=== PATIENT | female | born 1975 | race American Indian/Alaskan Native ===

== ENCOUNTER 2020-11-01 14:34 | Emergency (ER) | payer OTHER ==
[2020-11-01] MEDS ORDERED: FAMOTIDINE 20 MG/2 ML INJ IV ONE ×2 (14:39→14:48)
[2020-11-01] MEDS ORDERED: diphenhydrAMINE 50 MG/ML VIAL IV ONE (14:39)
[2020-11-01] MEDS ORDERED: methylPREDNISolone Sod Succinate 125 MG/2 ML INJ IV ONE (14:39)
--- NOTE | 2020-11-01 14:41 | Event Note ---
ED Screening Note ED Screening Note: Patient states that she believes she is having an allergic reaction She states that she began feeling a sensation of her throat closing yesterday but reports that it got worse today She states that she does not have her EpiPen Patient has multiple allergies She denies being exposed to any of her known allergies that she knows of Oxygen is 100% on room air Patient is tachycardic no Respiratory distress, no accessory muscle use, no stridor, no lip edema, no tongue edema, normal oropharynx, no uvular edema, no muffled voice, no trismus, no tongue elevation, no rash, no urticaria, no signs of angioedema This initial assessment/diagnostic orders/clinical plan/treatment(s) is/are subject to change based on patients health status, clinical progression and re- assessment by fellow clinical providers in the ED. Further treatment and workup at subsequent clinical providers discretion. Patient/guardian urged not to elope from the ED as their condition may be serious if not clinically assessed and managed. Initial orders include: Patient given IV medications
[2020-11-01] MEDS ORDERED: LORazepam 2 MG/ML VIAL IV ONE (14:59)
[2020-11-01] MEDS ORDERED: SODIUM CHLORIDE 0.9% 1000 ML 1,000 ML IV ONE (14:59)
--- NOTE | 2020-11-01 15:04 | Emergency Department Report ---
ED Allergic Reaction HPI - General Chief complaint: Allergic Reaction Stated complaint: SOB Time Seen by Provider: 11/01/20 14:39 Source: patient Mode of arrival: Ambulatory Limitations: No Limitations - History of Present Illness Initial Comments: Patient is 45-year-old female with history of allergic reaction. Patient presented to the ER complaining of feeling that her throat is closing up on her. Patient stated that this is similar to her previous allergic reaction. Patient also stated that she has been having itching but no hives. Patient stated that she did not took any medicine prior to coming to the ER. She does not know what is causing her allergy. She stated that she was referred to follow-up with her almond roaster. Patient denied any fever or chills. No difficulty swallowing. No difficulty breathing. Oxygen saturation is 100% on room air. Patient is tachycardic at 140. Oropharyngeal exam showed no tongue swelling uvula is midline. Patient immediately received Benadryl, Solu-Medrol, Pepcid. Patient is very anxious and patient received Ativan 1 mg IV. MD Complaint: allergic reaction -: Last night Exposure: unknown Symptoms: itching Severity: moderate Treatment Prior to Arrival: none Previous Allergy History: prior ED visit(s) - Related Data Previous Rx's Medication Instructions Recorded Last Taken Type Amlodipine Besylate [Norvasc] 5 mg PO DAILY #30 tablet 11/02/20 Unknown Rx Quetiapine Fumarate [SEROquel] 50 mg PO QDAY 30 Days #30 tab 11/02/20 Unknown Rx atenoloL [Tenormin] 25 mg PO BID #60 tab 11/02/20 Unknown Rx lisinopriL [Lisinopril] 20 mg PO DAILY #30 tablet 11/02/20 Unknown Rx Allergies Allergy/AdvReac Type Severity Reaction Status Date / Time avocado Allergy Anaphylaxis Verified 11/01/20 14:42 banana Allergy Anaphylaxis Verified 11/01/20 14:42 Latex, Natural Rubber Allergy Anaphylaxis Verified 11/01/20 14:42 METROCYCLINE Allergy Anaphylaxis Uncoded 11/01/20 14:42 ED Review of Systems ROS: Stated complaint: SOB Other details as noted in HPI Comment: All other systems reviewed and negative Constitutional: denies: chills, fever Respiratory: denies: cough, shortness of breath, SOB with exertion Cardiovascular: denies: chest pain, palpitations Gastrointestinal: denies: abdominal pain, nausea, vomiting Musculoskeletal: denies: back pain Neurological: denies: headache, weakness, numbness, paresthesias, confusion ED Past Medical Hx - Past Medical History Hx Hypertension: Yes - Surgical History Additional Surgical History: C SECTION - Medications Home Medications: Home Medications Medication Instructions Recorded Confirmed Last Taken Type Amlodipine Besylate [Norvasc] 5 mg PO DAILY #30 tablet 11/02/20 Unknown Rx Quetiapine Fumarate [SEROquel] 50 mg PO QDAY 30 Days #30 tab 11/02/20 Unknown Rx atenoloL [Tenormin] 25 mg PO BID #60 tab 11/02/20 Unknown Rx lisinopriL [Lisinopril] 20 mg PO DAILY #30 tablet 11/02/20 Unknown Rx ED Physical Exam - General Limitations: No Limitations General appearance: alert, anxious - Head Head exam: Present: atraumatic, normocephalic, normal inspection - Eye Eye exam: Present: normal appearance - ENT ENT exam: Present: normal exam, normal orophraynx, mucous membranes moist - Neck Neck exam: Present: normal inspection, full ROM. Absent: tenderness, meningismus - Respiratory Respiratory exam: Present: normal lung sounds bilaterally - Cardiovascular Cardiovascular Exam: Present: regular rate, normal rhythm, normal heart sounds - GI/Abdominal GI/Abdominal exam: Present: soft, normal bowel sounds. Absent: distended, te nderness, guarding, rebound, rigid, organomegaly, mass, bruit, pulsatile mass, hernia - Extremities Exam Extremities exam: Present: normal inspection, full ROM, normal capillary refill. Absent: tenderness - Back Exam Back exam: Present: normal inspection, full ROM. Absent: CVA tenderness (R), CVA tenderness (L) - Neurological Exam Neurological exam: Present: alert, oriented X3, CN II-XII intact, normal gait, reflexes normal. Absent: motor sensory deficit - Psychiatric Psychiatric exam: Present: anxious - Skin Skin exam: Present: warm, intact, normal color ED Course Vital Signs 11/01/20 11/01/20 11/01/20 14:51 15:00 15:16 Temperature Pulse Rate 119 H 122 H 120 H Respiratory 18 23 Rate Blood Pressure 148/81 148/81 Blood Pressure [Left] Blood Pressure [Right] O2 Sat by Pulse 99 97 98 Oximetry 11/01/20 11/01/20 11/01/20 15:30 15:46 16:00 Temperature Pulse Rate 120 H 106 H Respiratory 10 L 16 Rate Blood Pressure 150/91 150/91 150/91 Blood Pressure [Left] Blood Pressure [Right] O2 Sat by Pulse 98 99 99 Oximetry 11/01/20 11/02/20 11/02/20 20:02 03:13 09:02 Temperature 98.5 F Pulse Rate 125 H 75 120 H Respiratory 20 19 16 Rate Blood Pressure Blood Pressure 173/110 140/99 147/109 [Left] Blood Pressure [Right] O2 Sat by Pulse 98 95 98 Oximetry 11/02/20 11/02/20 11/02/20 09:18 11:07 13:22 Temperature 99.2 F 98.9 F Pulse Rate 105 H Respiratory 18 Rate Blood Pressure Blood Pressure [Left] Blood Pressure 139/95 [Right] O2 Sat by Pulse 97 98 Oximetry 11/02/20 14:15 Temperature Pulse Rate 100 H Respiratory 18 Rate Blood Pressure 157/99 Blood Pressure [Left] Blood Pressure [Right] O2 Sat by Pulse 99 Oximetry - Reevaluation(s) Reevaluation #1: 11/01/20 17:10 Patient initially was called and stated that she is getting better. Patient all of a sudden became confused and delusional. Patient start wandering in room. Patient having a visual hallucination. Patient is laughing up inappropriately. Oxygen saturation is 100% on room air. Vital signs stable. I order a UDS. ED Medical Decision Making - Lab Data Result diagrams: 11/01/20 15:42 11/02/20 09:59 - Medical Decision Making Patient is 45-year-old female with history of allergic reaction. Patient presented to the ER complaining of feeling that her throat is closing up on her. Patient stated that this is similar to her previous allergic reaction. Patient also stated that she has been having itching but no hives. Patient stated that she did not took any medicine prior to coming to the ER. She does not know what is causing her allergy. She stated that she was referred to follow-up with her almond roaster. Patient denied any fever or chills. No difficulty swallowing. No difficulty breathing. Oxygen saturation is 100% on room air. Patient is tachycardic at 140. Oropharyngeal exam showed no tongue swelling uvula is midline. Patient immediately received Benadryl, Solu-Medrol, Pepcid. Patient is very anxious and patient received Ativan 1 mg IV. Patient is very anxious. Patient is acting inappropriately. Patient also laughing inappropriately. Patient obviously responding to internal stimuli. Patient is unknown to this facility before no family or a contact number to talk to to get more information about her past medical history. Patient is obviously in acute psychosis. [id number] is signed. Critical care attestation.: If time is entered above; I have spent that time in minutes in the direct care of this critically ill patient, excluding procedure time. ED Disposition Clinical Impression: Hypokalemia, Anxiety, Low TSH level, Chronic hypertension, Insomnia Disposition: HOME / SELF CARE / HOMELESS Is pt being admited?: No Condition: Stable Instructions: Hypokalemia, Hypertension, Adult, [id number], Insomnia, Managing Anxiety, Adult, Hypertension (ED) Additional Instructions: Take the medication as prescribed. Take the Seroquel at bedtime. Follow-up with your doctor or doctor/clinic provided. Return if symptoms worsen as indicated by your discharge instructions. Follow-up with your doctor regarding retesting of your thyroid and further management. Follow-up with mental health regarding your anxiety. Professional and Agency Contacts To help [facility] (29/09) [place] Crisis Line: Suicide Prevention Line: Crisis Text Line: Text ``START to 309623 Emergency: 911 Outpatient COMMUNITY Behavioral Health Resources: [place]: [facility] [address] [place], [place] [address] [facility] [address] [place] [address] Thursday thru Thursday - 8am - 5pm Call to schedule an assessment for mental health and substance abuse programs [facility] Address: [address] [place] [address] Thursday thru Thursday- 7am-2pm [facility] Address: [address] [place] [address] Thursday thru Thursday: 8:30AM-5PM Prescriptions: lisinopriL [Lisinopril] 20 mg PO DAILY #30 tablet Amlodipine Besylate [Norvasc] 5 mg PO DAILY #30 tablet Quetiapine Fumarate [SEROquel] 50 mg PO QDAY 30 Days #30 tab atenoloL [Tenormin] 25 mg PO BID #60 tab Referrals: PRIMARY CARE, [Primary Care Provider] - 3-5 Days
[2020-11-01 16:11] LABS: Basophils % (Auto) 0.3 % (0.0-1.8); Eosinophils % (Auto) 0.4 % (0.0-4.3); Hematocrit 38.5 % (30.3-42.9); Hemoglobin 12.7 gm/dl (10.1-14.3); Lymphocytes # (Auto) 1.6 K/mm3 (1.2-5.4); Lymphocytes % (Auto) 16.1 % (13.4-35.0); Mean Corpuscular HGB Conc 33 % (30-34); Mean Corpuscular Volume 82 fl (79-97); Monocytes # (Auto) 0.5 K/mm3 (0.0-0.8); Monocytes % (Auto) 4.9 % (0.0-7.3); Platelet Count 262 K/mm3 (140-440); Red Cell Distribution Width 17.6 % (13.2-15.2)
[2020-11-01 16:20] LABS: BUN/Creatinine Ratio 9; Blood Urea Nitrogen 7 mg/dL (7-17); Calcium 9.7 mg/dL (8.4-10.2); Hemolysis Index 10
--- NOTE | 2020-11-01 16:45 | XRay Report ---
CHEST 2 VIEWS INDICATION / CLINICAL INFORMATION: SOB. COMPARISON: None available. FINDINGS: SUPPORT DEVICES: None. HEART / MEDIASTINUM: No significant abnormality. LUNGS / PLEURA: No significant pulmonary abnormality. No significant pleural effusion. No pneumothora x. ADDITIONAL FINDINGS: No significant additional findings. IMPRESSION: 1. No acute abnormality of the chest. Signer Name: Malcolm Vargas MD Signed: 11/01/2020 4:41 PM Workstation Name: [email or web address]
[2020-11-01 17:46] LABS: Amphetamine Screen,Urine Negative; Benzodiazepines Screen,Urine Negative; Cocaine Screen,Urine Negative; Methadone Screen,Urine Negative; Opiate Screen,Urine Negative
[2020-11-01 17:56] LABS: Bilirubin,Urine NEG (Negative); Blood,Urine NEG (Negative); Color,Urine Colorless (Yellow); Protein,Urine <15 mg/dL mg/dL (Negative); Urobilinogen,Urine < 2.0 mg/dL (<2.0)
[2020-11-01 18:00] LABS: WBC,Urine < 1.0 /HPF (0.0-6.0)
[2020-11-01 18:02] LABS: Cannabinoid Screen,Urine Positive
[2020-11-01] MEDS ORDERED: POTASSIUM CHLORIDE ER 20 MEQ TAB PO ONE ×2 (18:18→23:30)
[2020-11-01] MEDS ORDERED: ZIPRASIDONE MESYLATE 20 MG VIAL IM ONE (18:34)
[2020-11-01] MEDS ORDERED: SODIUM CHLORIDE 0.9% 1000 ML 1,000 ML ONE ×2 (23:28→23:29)
[2020-11-01] MEDS: POTASSIUM CHLORIDE 10 MEQ 10 MEQ/100 ML BAG IV SCH (23:31)
[2020-11-02] MEDS: POTASSIUM CHLORIDE 10 MEQ 10 MEQ/100 ML BAG IV SCH (00:55)
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
--- NOTE | 2020-11-02 10:58 | Emergency Department Report ---
ED Psych HPI - General Chief Complaint: Allergic Reaction Stated Complaint: SOB Time Seen by Provider: 11/01/20 14:39 Source: patient Mode of arrival: Ambulatory Limitations: No Limitations - History of Present Illness Initial Comments: Yesterday patient was exhibiting anxious and psychotic behavior. I was able to obtain clarity regarding patient's history of present illness upon her reevaluation today. 45-year-old female with a past medical history of depression, anxiety, hypertension presents to the hospital yesterday with shortness of breath, sh aking, headache, and choking feeling in her throat. Patient states that she has had similar symptoms with anxiety attack in the past and therefore took her sertraline however, she had no improvement. Patient has not taken her sertraline or other unknown psychiatric medications for the last 7 to 8 months. Patient then began to have an itching feeling and flushing to her skin and thought she might be experiencing anaphylaxis since she has had similar symptoms in the past with anaphylaxis. Patient said management Excedrin and did not feel any better therefore came to the ED. Is documented in the ED patient presented with tachycardia and anxiety was treated with Solu-Medrol, Benadryl, Pepcid, and Ativan. Is also the patient began to have psychosis and laughing uncontrollably. Geodon IM was ordered but not provided. Patient does not recall her behavior last night. A 1013 was signed and patient received mental health assessment today Patient also states she has not has been only able to sleep for about 10 minutes for the last 3 nights. She has a history of insomnia and has been out of her Lunesta for the past 1 week. Patient ED work-up revealed significant hypokalemia. She was treated p.o. and IV potassium. She also had an elevated D-dimer with document normal pulse ox. CT chest angiogram was not performed. CT chest was normal. Patient states she does have a history of abnormal thyroid tests and was told to see a thyroid specialist but follow-up has been on hold due to Covid. She is also told to see a wood web weaving machine operator due to some abnormal tests obtained by her [facility] [place] doctor Patient also has a history of hypertension. She takes atenolol prescribed 25 mg twice daily, amlodipine 5 mg every morning, lisinopril 20 mg every morning. Patient actually takes atenolol 50 mg every morning because she forgets to take it at night. Patient last dose of medications were yesterday a.m. She denies cardiac history. Right now patient complains of some residual shakiness and anxiety as well as a mild headache to the top of her head. She states she is still unable to sleep. Mental health assessment was performed and is recommended patient is discharged with Seroquel and she does not currently meet 1013 criteria. Patient does deny suicidal homicidal ideation at this time. - Related Data Previous Rx's Medication Instructions Recorded Last Taken Type Amlodipine Besylate [Norvasc] 5 mg PO DAILY #30 tablet 11/02/20 Unknown Rx Quetiapine Fumarate [SEROquel] 50 mg PO QDAY 30 Days #30 tab 11/02/20 Unknown Rx atenoloL [Tenormin] 25 mg PO BID #60 tab 11/02/20 Unknown Rx lisinopriL [Lisinopril] 20 mg PO DAILY #30 tablet 11/02/20 Unknown Rx Allergies Allergy/AdvReac Type Severity Reaction Status Date / Time avocado Allergy Anaphylaxis Verified 11/01/20 14:42 banana Allergy Anaphylaxis Verified 11/01/20 14:42 Latex, Natural Rubber Allergy Anaphylaxis Verified 11/01/20 14:42 METROCYCLINE Allergy Anaphylaxis Uncoded 11/01/20 14:42 ED Review of Systems ROS: Stated complaint: SOB Other details as noted in HPI Comment: All other systems reviewed and negative Constitutional: denies: fever Gastrointestinal: abdominal pain Neurological: headache ED Past Medical Hx - Past Medical History Hx Hypertension: Yes - Surgical History Additional Surgical History: C SECTION - Medications Home Medications: Home Medications Medication Instructions Recorded Confirmed Last Taken Type Amlodipine Besylate [Norvasc] 5 mg PO DAILY #30 tablet 11/02/20 Unknown Rx Quetiapine Fumarate [SEROquel] 50 mg PO QDAY 30 Days #30 tab 11/02/20 Unknown Rx atenoloL [Tenormin] 25 mg PO BID #60 tab 11/02/20 Unknown Rx lisinopriL [Lisinopril] 20 mg PO DAILY #30 tablet 11/02/20 Unknown Rx ED Physical Exam - General Limitations: No Limitations General appearance: alert, anxious - Other Other exam information: General: No acute distress Head: Atraumatic Eyes: normal appearance ENT: Moist mucous membranes Neck: Normal appearance, no midline tenderness Chest: Clear to auscultation bilaterally CV: Mild tachycardia, regular rhythm Abdomen: Soft, normal bowel sounds, nontender, nondistended, no rebound or guarding Back: Normal inspection Extremity: Normal inspection, full range of motion, no calf tenderness or leg edema Neuro: Alert O x 3, no facial asymmetry, speech clear, no gross motor sensory deficit Psych: Appropriate behavior Skin: No rash ED Course Vital Signs 11/01/20 11/01/20 11/01/20 14:51 15:00 15:16 Temperature Pulse Rate 119 H 122 H 120 H Respiratory 18 23 Rate Blood Pressure 148/81 148/81 Blood Pressure [Left] Blood Pressure [Right] O2 Sat by Pulse 99 97 98 Oximetry 11/01/20 11/01/20 11/01/20 15:30 15:46 16:00 Temperature Pulse Rate 120 H 106 H Respiratory 10 L 16 Rate Blood Pressure 150/91 150/91 150/91 Blood Pressure [Left] Blood Pressure [Right] O2 Sat by Pulse 98 99 99 Oximetry 11/01/20 11/02/20 11/02/20 20:02 03:13 09:02 Temperature 98.5 F Pulse Rate 125 H 75 120 H Respiratory 20 19 16 Rate Blood Pressure Blood Pressure 173/110 140/99 147/109 [Left] Blood Pressure [Right] O2 Sat by Pulse 98 95 98 Oximetry 11/02/20 11/02/20 11/02/20 09:18 11:07 13:22 Temperature 99.2 F 98.9 F Pulse Rate 105 H Respiratory 18 Rate Blood Pressure Blood Pressure [Left] Blood Pressure 139/95 [Right] O2 Sat by Pulse 97 98 Oximetry 11/02/20 14:15 Temperature Pulse Rate 100 H Respiratory 18 Rate Blood Pressure 157/99 Blood Pressure [Left] Blood Pressure [Right] O2 Sat by Pulse 99 Oximetry - Reevaluation(s) Reevaluation #1: 11/02/20 11:04 Patient has continued to have tachycardia despite receiving Ativan yesterday. UDS negative. Patient requires additional work-up for medical clearance Plan: Elevated D-dimer Patient has a low pretest probability for pulmonary embolism based on Wells and PERC criteria however, she does have elevated D-dimer and does have persistent tachycardia and has symptoms of shortness of breath. Will perform CT angiogram chest Will perform thyroid function test to rule out acute thyroid function abnormality given presence of tachycardia, anxiety, and hypertension Hypokalemia: Could be secondary to hyperventilation. Potassium was supplemented last night p.o. and IV. Repeat potassium ordered. Magnesium ordered. EKG ordered to evaluate rhythm and persistent tachycardia Patient has persistent hypotension and tachycardia and has not had her medications today. She will be provided her dose of atenolol, lisinopril, and amlodipine Insomia with anxiety, Seroquel provided by mental health and first dose will be provided in the ED. Will provide 1 dose here and discuss whether or not Seroquel and Lunesta can be taken together since patient typically takes Lunesta for sleep Patient has a mild headache without acute neurologic deficits: Tylenol will be provided for pain Labs informed by patient's nurse Estefania that daughter called unclear about her mother's work-up and need for psychiatric treatment. Patient states that her daughter is well aware that she has history of psychiatric issues in the past. She has throughout a permission to speak to her daughter regarding her diagnosis and care. Unfortunately, there is not currently on number on the chart to contact the daughter. She apparently plans to call back as per nurse. 11/02/20 11:18 Daughter Dolly number provided by patient: [phone] however in service when I called number 11/02/20 11:20 then [phone] provided, also not in service. will await daughter call back Reevaluation #2: 11/02/20 14:26 Patient has been resting in the bed even prior to receiving Ativan and Benadryl. Intermittent Benadryl for provided IV since patient states she has history of increased anxiety after receiving IV contrast. Patient had a CT angiogram without signs of allergies or difficulty. Repeat vitals showed mild tachycardia. Patient is now receiving her oral atenolol, lisinopril, and amlodipine. Reevaluation #3: 11/02/20 14:55 I spoke to autumn Moore who witnessed patient's bizarre behavior last night. Patient apparently was taking her clothes off and run into the department, pulled and fractured her IV line, chewed on her IV line, and was exhibiting abnormal behavior yesterday. 11/02/20 15:08 called [phone] Her daughter Dolly answered the phone. Does agree mother sounded confused on the phone. She didn't realize her mother took anxiety meds. Concerned she received meds that may have triggered this response. She expressed concerns of needed to go to psych facility. - Consultations Consultation #1: 11/02/20 11:14 Case discussed with mental health provider who is not both where patient was [place]. Recommends to continue Seroquel and agrees with first dose here and to not continue with Lunesta. Outpatient follow-up with psychiatry recommended for further medication treatment ED Medical Decision Making - Lab Data Result diagrams: 11/01/20 15:42 11/02/20 09:59 Lab Results 11/01/20 11/01/20 11/01/20 Range/Units 15:42 15:42 15:42 WBC 9.7 (4.5-11.0) K/mm3 RBC 4.70 (3.65-5.03) M/mm3 Hgb 12.7 (10.1-14.3) gm/dl Hct 38.5 (30.3-42.9) % MCV 82 (79-97) fl MCH 27 L (28-32) pg MCHC 33 (30-34) % RDW 17.6 H (13.2-15.2) % Plt Count 262 (140-440) K/mm3 Lymph % (Auto) 16.1 (13.4-35.0) % Weber % (Auto) 4.9 (0.0-7.3) % Eos % (Auto) 0.4 (0.0-4.3) % Baso % (Auto) 0.3 (0.0-1.8) % Lymph # (Auto) 1.6 (1.2-5.4) K/mm3 Weber # (Auto) 0.5 (0.0-0.8) K/mm3 Eos # (Auto) 0.0 (0.0-0.4) K/mm3 Baso # (Auto) 0.0 (0.0-0.1) K/mm3 Seg Neutrophils % 78.3 H (40.0-70.0) % Seg Neutrophils # 7.6 (1.8-7.7) K/mm3 D-Dimer 601.22 H (0-234) ng/mlDDU Sodium 133 L (137-145) mmol/L Potassium 2.5 L* (3.6-5.0) mmol/L Chloride 95.6 L (98-107) mmol/L Carbon Dioxide 23 (22-30) mmol/L Anion Gap 17 mmol/L BUN 7 (7-17) mg/dL Creatinine 0.8 (0.6-1.2) mg/dL Estimated GFR > 60 ml/min BUN/Creatinine Ratio 9 % Glucose 213 H (65-100) mg/dL Calcium 9.7 (8.4-10.2) mg/dL Magnesium (1.7-2.3) mg/dL TSH (0.270-4.200) mlU/mL Free T4 (0.76-1.46) ng/dL HCG, Qual (Negative) Urine Color (Yellow) Urine Turbidity (Clear) Urine pH (5.0-7.0) Ur Specific [place] (1.003-1.030) Urine Protein (Negative) mg/dL Urine Glucose (UA) (Negative) mg/dL Urine Ketones (Negative) mg/dL Urine Blood (Negative) Urine Nitrite (Negative) Urine Bilirubin (Negative) Urine Urobilinogen (<2.0) mg/dL Ur Leukocyte Esterase (Negative) Urine WBC (Auto) (0.0-6.0) /HPF Urine RBC (Auto) (0.0-6.0) /HPF U Epithel Cells (Auto) (0-13.0) /HPF Salicylates (2.8-20.0) mg/dL Urine Opiates Screen Urine Methadone Screen Acetaminophen (10.0-30.0) ug/mL Ur Barbiturates Screen Ur Phencyclidine Scrn Ur Amphetamines Screen U Benzodiazepines Scrn Urine Cocaine Screen U Marijuana (THC) Screen Drugs of Abuse Note Plasma/Serum Alcohol (0-0.07) % 11/01/20 11/01/20 11/01/20 Range/Units 17:30 17:30 17:59 WBC (4.5-11.0) K/mm3 RBC (3.65-5.03) M/mm3 Hgb (10.1-14.3) gm/dl Hct (30.3-42.9) % MCV (79-97) fl MCH (28-32) pg MCHC (30-34) % RDW (13.2-15.2) % Plt Count (140-440) K/mm3 Lymph % (Auto) (13.4-35.0) % Weber % (Auto) (0.0-7.3) % Eos % (Auto) (0.0-4.3) % Baso % (Auto) (0.0-1.8) % Lymph # (Auto) (1.2-5.4) K/mm3 Weber # (Auto) (0.0-0.8) K/mm3 Eos # (Auto) (0.0-0.4) K/mm3 Baso # (Auto) (0.0-0.1) K/mm3 Seg Neutrophils % (40.0-70.0) % Seg Neutrophils # (1.8-7.7) K/mm3 D-Dimer (0-234) ng/mlDDU Sodium (137-145) mmol/L Potassium (3.6-5.0) mmol/L Chloride (98-107) mmol/L Carbon Dioxide (22-30) mmol/L Anion Gap mmol/L BUN (7-17) mg/dL Creatinine (0.6-1.2) mg/dL Estimated GFR ml/min BUN/Creatinine Ratio % Glucose (65-100) mg/dL Calcium (8.4-10.2) mg/dL Magnesium (1.7-2.3) mg/dL TSH (0.270-4.200) mlU/mL Free T4 (0.76-1.46) ng/dL HCG, Qual (Negative) Urine Color Colorless (Yellow) Urine Turbidity Clear (Clear) Urine pH 6.0 (5.0-7.0) Ur Specific [place] 1.001 L (1.003-1.030) Urine Protein <15 mg/dl (Negative) mg/dL Urine Glucose (UA) Neg (Negative) mg/dL Urine Ketones Neg (Negative) mg/dL Urine Blood Neg (Negative) Urine Nitrite Neg (Negative) Urine Bilirubin Neg (Negative) Urine Urobilinogen < 2.0 (<2.0) mg/dL Ur Leukocyte Esterase Neg (Negative) Urine WBC (Auto) < 1.0 (0.0-6.0) /HPF Urine RBC (Auto) 11.0 (0.0-6.0) /HPF U Epithel Cells (Auto) 1.0 (0-13.0) /HPF Salicylates < 0.3 L (2.8-20.0) mg/dL Urine Opiates Screen Negative Urine Methadone Screen Negative Acetaminophen (10.0-30.0) ug/mL Ur Barbiturates Screen Negative Ur Phencyclidine Scrn Negative Ur Amphetamines Screen Negative U Benzodiazepines Scrn Negative Urine Cocaine Screen Negative U Marijuana (THC) Screen Positive Drugs of Abuse Note Disclamer Plasma/Serum Alcohol (0-0.07) % 11/01/20 11/01/20 11/01/20 Range/Units 17:59 17:59 17:59 WBC (4.5-11.0) K/mm3 RBC (3.65-5.03) M/mm3 Hgb (10.1-14.3) gm/dl Hct (30.3-42.9) % MCV (79-97) fl MCH (28-32) pg MCHC (30-34) % RDW (13.2-15.2) % Plt Count (140-440) K/mm3 Lymph % (Auto) (13.4-35.0) % Weber % (Auto) (0.0-7.3) % Eos % (Auto) (0.0-4.3) % Baso % (Auto) (0.0-1.8) % Lymph # (Auto) (1.2-5.4) K/mm3 Weber # (Auto) (0.0-0.8) K/mm3 Eos # (Auto) (0.0-0.4) K/mm3 Baso # (Auto) (0.0-0.1) K/mm3 Seg Neutrophils % (40.0-70.0) % Seg Neutrophils # (1.8-7.7) K/mm3 D-Dimer (0-234) ng/mlDDU Sodium (137-145) mmol/L Potassium (3.6-5.0) mmol/L Chloride (98-107) mmol/L Carbon Dioxide (22-30) mmol/L Anion Gap mmol/L BUN (7-17) mg/dL Creatinine (0.6-1.2) mg/dL Estimated GFR ml/min BUN/Creatinine Ratio % Glucose (65-100) mg/dL Calcium (8.4-10.2) mg/dL Magnesium (1.7-2.3) mg/dL TSH (0.270-4.200) mlU/mL Free T4 (0.76-1.46) ng/dL HCG, Qual Negative (Negative) Urine Color (Yellow) Urine Turbidity (Clear) Urine pH (5.0-7.0) Ur Specific [place] (1.003-1.030) Urine Protein (Negative) mg/dL Urine Glucose (UA) (Negative) mg/dL Urine Ketones (Negative) mg/dL Urine Blood (Negative) Urine Nitrite (Negative) Urine Bilirubin (Negative) Urine Urobilinogen (<2.0) mg/dL Ur Leukocyte Esterase (Negative) Urine WBC (Auto) (0.0-6.0) /HPF Urine RBC (Auto) (0.0-6.0) /HPF U Epithel Cells (Auto) (0-13.0) /HPF Salicylates (2.8-20.0) mg/dL Urine Opiates Screen Urine Methadone Screen Acetaminophen 5.0 L (10.0-30.0) ug/mL Ur Barbiturates Screen Ur Phencyclidine Scrn Ur Amphetamines Screen U Benzodiazepines Scrn Urine Cocaine Screen U Marijuana (THC) Screen Drugs of Abuse Note Plasma/Serum Alcohol < 0.01 (0-0.07) % 11/02/20 11/02/20 Range/Units 09:59 09:59 WBC (4.5-11.0) K/mm3 RBC (3.65-5.03) M/mm3 Hgb (10.1-14.3) gm/dl Hct (30.3-42.9) % MCV (79-97) fl MCH (28-32) pg MCHC (30-34) % RDW (13.2-15.2) % Plt Count (140-440) K/mm3 Lymph % (Auto) (13.4-35.0) % Weber % (Auto) (0.0-7.3) % Eos % (Auto) (0.0-4.3) % Baso % (Auto) (0.0-1.8) % Lymph # (Auto) (1.2-5.4) K/mm3 Weber # (Auto) (0.0-0.8) K/mm3 Eos # (Auto) (0.0-0.4) K/mm3 Baso # (Auto) (0.0-0.1) K/mm3 Seg Neutrophils % (40.0-70.0) % Seg Neutrophils # (1.8-7.7) K/mm3 D-Dimer (0-234) ng/mlDDU Sodium 141 D (137-145) mmol/L Potassium 4.2 D (3.6-5.0) mmol/L Chloride 103.3 (98-107) mmol/L Carbon Dioxide 24 (22-30) mmol/L Anion Gap 18 mmol/L BUN 8 (7-17) mg/dL Creatinine 0.7 (0.6-1.2) mg/dL Estimated GFR > 60 ml/min BUN/Creatinine Ratio 11 % Glucose 106 H (65-100) mg/dL Calcium 10.1 (8.4-10.2) mg/dL Magnesium 1.80 (1.7-2.3) mg/dL TSH 0.175 L (0.270-4.200) mlU/mL Free T4 1.50 H (0.76-1.46) ng/dL HCG, Qual (Negative) Urine Color (Yellow) Urine Turbidity (Clear) Urine pH (5.0-7.0) Ur Specific [place] (1.003-1.030) Urine Protein (Negative) mg/dL Urine Glucose (UA) (Negative) mg/dL Urine Ketones (Negative) mg/dL Urine Blood (Negative) Urine Nitrite (Negative) Urine Bilirubin (Negative) Urine Urobilinogen (<2.0) mg/dL Ur Leukocyte Esterase (Negative) Urine WBC (Auto) (0.0-6.0) /HPF Urine RBC (Auto) (0.0-6.0) /HPF U Epithel Cells (Auto) (0-13.0) /HPF Salicylates (2.8-20.0) mg/dL Urine Opiates Screen Urine Methadone Screen Acetaminophen (10.0-30.0) ug/mL Ur Barbiturates Screen Ur Phencyclidine Scrn Ur Amphetamines Screen U Benzodiazepines Scrn Urine Cocaine Screen U Marijuana (THC) Screen Drugs of Abuse Note Plasma/Serum Alcohol (0-0.07) % - EKG Data -: EKG Interpreted by Dc EKG shows normal: sinus rhythm, ST-T waves (no stemi) Rate: normal (96) - Radiology Data Radiology results: report reviewed CTA CHEST WITH IV CONTRAST INDICATION: Tachycardia, elevated d-dimer. TECHNIQUE: Axial CT images were obtained through the chest after injection of 100 cc Omnipaque 350 IV contrast. 3 plane MIP reconstructions were produced. All CT scans at this location are performed using CT dose reduction for ALARA by means of automated exposure control. COMPARISON: 2 views of the chest from 11/01/2020 FINDINGS: PULMONARY ARTERIES: No pulmonary emboli. AORTA AND ARTERIES: No significant abnormality. HEART: No significant abnormality. MEDIASTINUM: No significant abnormality. LUNGS: No suspicious consolidation, nodule or mass. No pneumothorax or pleural effusion. ADDITIONAL FINDINGS: None. UPPER ABDOMEN: No acute findings. BONES: No significant osseous abnormality. IMPRESSION: 1. No CT evidence for pulmonary embolism. 2. No acute findings. - Medical Decision Making 45-year-old female with a history of anxiety, depression, hypertension and previous anaphylaxis presents to the hospital with complaints of anxiety versus anaphylaxis reaction. Patient was initially medically cleared last night after treatment for anxiety, allergic reaction, and hyperkalemia. Nurse brought to my attention concerns of persistent vital sign abnormalities and concern for underlying medical disorder. Additional work-up obtained including CT angiogram for elevated D-dimer, thyroid function test for persistent tachycardia, and repeat labs to determine electrolytes. CT angiogram chest is negative for acute abnormality including pulmonary embolism. Thyroid tests are mildly abnormal but not indicative of thyroid storm. Electrolyte abnormalities have corrected. Patient is also on a beta-anabel and several blood pressure medications (last dose yesterday a.m.) which were provided in the ED and will be represcribed as an outpatient. Seroquel will be initiated as per mental health request. I did speak to the daughter Dolly on the phone (with patient's permission) and explained everything in her need for follow-up. She voices understanding and will come to pick patient up and take her home. She will also make sure patient fills her prescriptions and is compliant Critical Care Time: No Critical care attestation.: If time is entered above; I have spent that time in minutes in the direct care of this critically ill patient, excluding procedure time. ED Disposition Clinical Impression: Hypokalemia, Anxiety, Low TSH level, Chronic hypertension, Insomnia Disposition: HOME / SELF CARE / HOMELESS Is pt being admited?: No Condition: Stable Instructions: Hypokalemia, Hypertension, Adult, [id number], Insomnia, Managing Anxiety, Adult, Hypertension (ED) Additional Instructions: Take the medication as prescribed. Take the Seroquel at bedtime. Follow-up with your doctor or doctor/clinic provided. Return if symptoms worsen as indicated by your discharge instructions. Follow-up with your doctor regarding retesting of your thyroid and further management. Follow-up with mental health regarding your anxiety. Professional and Agency Contacts To help [facility] (29/09) [place] Crisis Line: Suicide Prevention Line: Crisis Text Line: Text ``START to 389238 Emergency: 911 Outpatient COMMUNITY Behavioral Health Resources: [place]: [facility] [address], [place] [address] [place]: [facility] [address] [place] [address] Thursday thru Thursday - 8am - 5pm Call to schedule an assessment for mental health and substance abuse programs [facility] Address: [address] [place] [address] Thursday thru Thursday- 7am-2pm [facility] Address: [address] [place] [address] Thursday thru Thursday: 8:30AM-5PM Prescriptions: lisinopriL [Lisinopril] 20 mg PO DAILY #30 tablet Amlodipine Besylate [Norvasc] 5 mg PO DAILY #30 tablet Quetiapine Fumarate [SEROquel] 50 mg PO QDAY 30 Days #30 tab atenoloL [Tenormin] 25 mg PO BID #60 tab Referrals: PRIMARY CARE, [Primary Care Provider] - 3-5 Days Time of Disposition: 15:21
[2020-11-02] MEDS ORDERED: QUEtiapine 25 MG TAB PO SCH (11:00)
[2020-11-02 11:03] LABS: BUN/Creatinine Ratio 11; Blood Urea Nitrogen 8 mg/dL (7-17); Calcium 10.1 mg/dL (8.4-10.2); Hemolysis Index 4
[2020-11-02 11:04] LABS: Free T4 (Free Thyroxine) 1.5 ng/dL (0.76-1.46)
[2020-11-02] MEDS ORDERED: LISINOPRIL 20 MG TAB PO ONE ×2 (11:21→14:18)
[2020-11-02] MEDS ORDERED: amLODIPine 5 MG TAB PO ONE (11:21)
[2020-11-02] MEDS ORDERED: atenoloL 25 MG TAB PO ONE (11:21)
[2020-11-02] MEDS ORDERED: diphenhydrAMINE 50 MG/ML VIAL IV ONE (11:48)
[2020-11-02] MEDS ORDERED: LORazepam 2 MG/ML VIAL IV ONE (11:48)
[2020-11-02 14:17] VITALS: BP 157/99
--- NOTE | 2020-11-02 14:21 | Cat Scan Report ---
CTA CHEST WITH IV CONTRAST INDICATION: Tachycardia, elevated d-dimer. TECHNIQUE: Axial CT images were obtained through the chest after injection of 100 cc Omnipaque 350 IV contrast. 3 plane MIP reconstructions were produced. All CT scans at this location are performed using CT dose reduction for ALARA by means of automated exposure control. COMPARISON: 2 views of the chest from 11/01/2020 FINDINGS: PULMONARY ARTERIES: No pulmonary emboli. AORTA AND ARTERIES: No significant abnormality. HEART: No significant abnormality. MEDIASTINUM: No significant abnormality. LUNGS: No suspicious consolidation, nodule or mass. No pneumothorax or pleural effusion. ADDITIONAL FINDINGS: None. UPPER ABDOMEN: No acute findings. BONES: No significant osseous abnormality. IMPRESSION: 1. No CT evidence for pulmonary embolism. 2. No acute findings. Signer Name: Malcolm Vargas MD Signed: 11/02/2020 2:17 PM Workstation Name: [id number]
--- NOTE | 2020-11-06 08:46 | Electrocardiograph Report ---
[facility] Test Date: 2020-11-02 Test Time: 14:08:58 Pat Name: ZEENAT RIDER Department: Room: Gender: F Receptionist Doctor'S Office: [place] : 1975 Requested By: TRISTAN GUILLORY Order Number: [id number] Reading MD: Osiel Altman Measurements Intervals [place] Rate: 96 P: 67 IA: 166 QRS: 25 QRSD: 75 T: 50 QT: 377 QTc: 477 Interpretive Statements Sinus rhythm Probable left atrial enlargement nonspecific st-t No previous ECG available for comparison Electronically Signed On 11-06-2020 8:46:12 EDT by Osiel Altman
== END 2020-11-02 16:15 | disposition home or self-care (01) ==
LOC: EDSEX → ED 14:34
DX: E87.6 Hypokalemia (principal); F41.9 Anxiety disorder, unspecified; R79.89 Other specified abnormal findings of blood chemistry; G47.00 Insomnia, unspecified; I10 Essential (primary) hypertension; F17.200 Nicotine dependence, unspecified, uncomplicated; Z20.822 Contact with and (suspected) exposure to COVID-19; Z79.899 Other long term (current) drug therapy; Z91.040 Latex allergy status; Z88.8 Allergy status to other drugs, medicaments and biological substances; Z91.018 Allergy to other foods; Z98.890 Other specified postprocedural states
CPT/HCPCS: 36415; 71046; 71275; 80048; 80307; 81001; 83735; 84439; 84443; 84703; 85025; 85379; 93005; 96361; 96365; 96366; 96375; 96376; 99285; J1200; J2060; J2930; J3480; J7030; Q9967; U0003; 80320; G0480